=== PATIENT | male | born 1945 | race Caucasian/White ===

== ENCOUNTER 2024-12-07 19:32 | Observation (INO) ==
[2024-12-07 20:22] LABS: Basophils # (Auto) 0.03 K/mcL (0.00-0.30); Basophils % (Auto) 0.4 % (0.0-2.0); Eosinophils # (Auto) 0.09 K/mcL (0.00-0.70); Eosinophils % (Auto) 1.2 % (0.0-7.0); Hematocrit 39.3 % (40.1-51.0); Hemoglobin 13.1 g/dL (13.7-17.5); Lymphocytes # (Auto) 1.42 K/mcL (1.50-4.80); Lymphocytes % (Auto) 19.3 % (15.5-49.0); Mean Corpuscular HGB Conc 33.3 g/dL (31.0-36.0); Monocytes # (Auto) 0.51 K/mcL (0.10-0.90); Monocytes % (Auto) 6.9 % (1.0-12.0); Neutrophils % (Auto) 70.7 % (38.0-78.0); Platelet Count 224 K/mcL (140-440); RBC 3.74 M/mcL (4.63-6.08); WBC 7.4 K/mcL (4.5-11.0)
[2024-12-07 20:33] LABS: Alcohol,Blood 0.285 gm/dL (<0.010)
[2024-12-07] MEDS: DIPH,PERTUSS(ACELL),TET VAC/PF 0.5 ML SYRINGE IM ONE (20:33)
[2024-12-07 20:35] LABS: ALT/SGPT 12 U/L (<40); AST/SGOT 10 U/L (<40); Albumin 3.8 gm/dL (3.2-5.2); Albumin/Globulin Ratio 1.2 (1.0-2.3); Alkaline Phosphatase 101 U/L (39-117); Anion Gap 14.0 (8.0-16.0); Bilirubin,Total 0.5 mg/dL (0.1-1.0); Blood Urea Nitrogen 11 mg/dL (8-23); Calcium 8.5 mg/dL (8.6-10.4); Carbon Dioxide 18 mmol/L (22-30); Chloride 96 mmol/L (96-108); Globulin 3.1 gm/dL (2.2-3.7); Glucose 87 mg/dL (70-105); Potassium 3.9 mmol/L (3.3-5.1); Sodium 128 mmol/L (133-145)
[2024-12-07 21:30] LABS: Phosphorous 3.4 mg/dL (2.5-4.5); Thyroid Stimulating Hormone 8.21 uIU/mL (0.27-5.01)
[2024-12-07] MEDS ORDERED: IBUPROFEN 600 MG TABLET PO PRN (21:35)
[2024-12-07] MEDS ORDERED: ACETAMINOPHEN 325 MG TABLET PO PRN (21:35)
[2024-12-07] MEDS ORDERED: ONDANSETRON 4 MG/2 ML VIAL IV PRN (21:35)
[2024-12-07] MEDS: 0.9 % SODIUM CHLORIDE 1,000 ML IV SCH (21:59)
[2024-12-07] MEDS: 0.9 % SODIUM CHLORIDE 10 ML SYRINGE IV SCH (21:59)
[2024-12-07] MEDS: DOCUSATE SODIUM 100 MG CAPSULE PO SCH (21:59)
[2024-12-07] MEDS: SENNOSIDES 1 TABLET PO SCH (21:59)
[2024-12-07 22:34] LABS: Bilirubin,Urine Negative (Negative); Color,Urine Light yellow; Glucose,Urine (UA) Negative (Negative); Ketones,Urine Negative (Negative); Leukocyte Esterase,Urine Negative /uL (Negative); PH,Urine 5.5 (5.0-9.0); Protein,Urine Negative (Negative); Specific Gravity,Urine <= 1.005 (1.000-1.035); Urobilinogen,Urine Normal
[2024-12-08 06:25] LABS: Basophils # (Auto) 0.01 K/mcL (0.00-0.30); Basophils % (Auto) 0.2 % (0.0-2.0); Eosinophils # (Auto) 0.07 K/mcL (0.00-0.70); Eosinophils % (Auto) 1.6 % (0.0-7.0); Hematocrit 40.3 % (40.1-51.0); Hemoglobin 13.3 g/dL (13.7-17.5); Lymphocytes # (Auto) 0.57 K/mcL (1.50-4.80); Lymphocytes % (Auto) 12.8 % (15.5-49.0); Mean Corpuscular HGB Conc 33.0 g/dL (31.0-36.0); Monocytes # (Auto) 0.43 K/mcL (0.10-0.90); Monocytes % (Auto) 9.6 % (1.0-12.0); Neutrophils % (Auto) 74.0 % (38.0-78.0); Platelet Count 200 K/mcL (140-440); RBC 3.82 M/mcL (4.63-6.08); WBC 4.5 K/mcL (4.5-11.0)
[2024-12-08 07:10] LABS: ALT/SGPT 12 U/L (<40); AST/SGOT 12 U/L (<40); Albumin 3.5 gm/dL (3.2-5.2); Albumin/Globulin Ratio 1.2 (1.0-2.3); Alkaline Phosphatase 87 U/L (39-117); Anion Gap 12.0 (8.0-16.0); Bilirubin,Direct 0.2 mg/dL (<0.3); Bilirubin,Total 0.5 mg/dL (0.1-1.0); Blood Urea Nitrogen 10 mg/dL (8-23); Calcium 8.6 mg/dL (8.6-10.4); Carbon Dioxide 20 mmol/L (22-30); Chloride 109 mmol/L (96-108); Globulin 2.9 gm/dL (2.2-3.7); Glucose 84 mg/dL (70-105); Phosphorous 3.7 mg/dL (2.5-4.5); Potassium 4.2 mmol/L (3.3-5.1); Sodium 141 mmol/L (133-145); Triglycerides 91 mg/dL (<150); Uric Acid 7.8 mg/dL (2.5-8.0)
== END 2024-12-08 14:00 | disposition home or self-care (01) ==
LOC: EDBD → ED 19:32 → MEDSUR 19:32 → MERGE 21:34 → MEDSUR 21:37
PROVIDERS: ADMIT Internal Medicine; ATTEND Internal Medicine